=== PATIENT | female | born 1955 | race Caucasian/White ===

== ENCOUNTER → 2016-06-25 | Day surgery (SDC) | payer OTHER ==
[~2016-06-25] MED LIST: ACETAMINOPHEN 1000 MG/100 ML VIAL IV ONE; ARTIFICIAL TEARS OPTH OINT 3.5 APPLIC/3.5 GM TUBO ONE; BALANCED SALT SOLN OPHT IRRIG 15 ML BTL ONE; COZA100T PO; HYDR50TA5 PO; LACTATED RINGER'S 1,000 ML BAG IV ONE; LACTATED RINGER'S 1000 ML INJ 1,000 ML ONE; LIDOCAINE 1%/EPINEPHrine 1:100,000 SOLN 50 ML VIAL ONE; LIDOCAINE 2%/EPINEPHrine PF 1:200,000 20ML SDV ONE; METO25 PO; MIDAZOLAM HCL 2 MG/2 ML VIAL ONE; MORPHINE SULFATE 4 MG/ML INJ ONE; NEOMYCIN/POLYMYXIN/BACITRACIN OINT 15 GM TUBE ONE; NEOMYCIN/POLYMYXIN/HYDROCORT OTIC SUSP 10 ML BTL ONE; ONDANSETRON HCL 4 MG/2 ML VIAL IV PUSH ONE; PRIS100T PO; PROPOFOL 200 MG/20 ML AMP IV ONE; TAB-TAB PO; ceFAZolin INJ 1,000 MG VIAL ONE
--- NOTE | 2016-06-25 14:08 | TN ---
cc: DELVIN LEMUS M.D. 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 PROCEDURE Cervicofacial rhytidectomy, upper and lower blepharoplasty with canthopexy also removal of quarter centimeter medial keratosis located on the left upper nasal wall. SURGEON Delvin Lemus MD ANESTHESIA LMA general ESTIMATED BLOOD LOSS Minimal COMPLICATIONS None DRAINS None PROCEDURE She was properly consented, marked and anesthetized. The skin was sterilized with Microcyn, sterile draping applied. A total of 10 cc of 2% lidocaine with epinephrine were placed in the eyelids, as well as the incision sites on the face. I began by harvesting the fat in the lower abdomen after tumescent the face, neck and abdomen. Approximately 50 cc of fat was harvested from the lower abdomen and suprapubic area. This I decanted was suitable for injection about 15 cc and equally distributed were placed on the nasolabial fold marionette lines as well as cheek and orthodoxy areas. Our attention was directed to the upper eyelid where the skin was removed. Exploration of the inner bags were carried out. This was properly removed conservatively. The lower eyelid was approached in a subciliary incision and 4 mm below a myocutaneous flap was elevated approaching and dissecting the orbital septum down to the arcus marginalis where this was properly opened and the fat was redistributed after removing a conservative amount and anchored with 6-0 Monocryl suture to anchor beyond of the arcus marginalis. The excess of the skin was done at this point. A lateral canthopexy was done on the lower lateral eyelid with a 5-0 silk suture anchored to the inner aspect of the superolateral orbital periosteum. With this, wounds were closed in multiple layers utilizing 6-0 Monocryl suture of Prolene to the skin. In equal manner, the lower eyelid was closed by approximating the orbicularis oculi muscle, dermis and a subcuticular Prolene suture. The contralateral side was approached in exactly the same manner as previously described. At this point through a submental incision, the dissection was carried out down to the base of the neck and at this point lipectomy was done in the pre and retro-platysmal plane utilizing electrocautery. After that I proceeded and plicated the platysmal muscle utilizing 4-0 Mersilene suture and a myotomy was done at the inner aspect of the platysmal muscle to accentuate the circum mental angle and at this point through a pre and postauricular incision, the cervicofacial flap was elevated. Vertical plication of the SMAS and lateral platysmaplasty was done utilizing a running a Mersilene suture and interrupted Mersilene suture for the lateral platysma. Tisseel was applied for this as a tissue glue and the closure of these wounds were done by removing a minimal amount of excess skin and this was closed as follow: the postauricular area was closed utilizing 3-0 Monocryl suture with surgical maury and the preauricular area was closed utilizing 5-0 Monocryl suture and 5-0 fast-absorbing gut. The submental area was properly closed utilizing multiple layers of 3-0 Monocryl suture. For dressings, we utilized a combination of 4x4s, ABD, Alannah and netting. For the eyelids, we definitely proceeded and used Steri-Strips that will hold the suture. The patient was awakened and extubated in the operating room. She was transferred back to the postanesthesia care unit in stable condition. There were no complications appreciated. The patient tolerated the procedure fairly well. MD CLAUDIO Vásquez/DILSHAD /1:33 PM /1:50 PM
== END | disposition home or self-care (01) ==
LOC: ESDC 07:05
PROVIDERS: ATTEND Plastic Surgery
DX: Z41.1 Encounter for cosmetic surgery (principal)
CPT/HCPCS: 00103; 00300; 11954; 15820; 15822; 15828; 21282; J0131; J0690; J2250; J2270; J2405; J3010; J7120